=== PATIENT | female | born 1960 | race Caucasian/White ===

== ENCOUNTER → 2023-04-02 13:35 | Outpatient (BNVA) | payer OTHER, SELFPAY | PROVIDERS: Family Provider Family Medicine; PCP Family Medicine; Visit Provider Dermatology | DX: L82.1 Other seborrheic keratosis (principal); L81.5 Leukoderma, not elsewhere classified; L81.4 Other melanin hyperpigmentation; L57.8 Other skin changes due to chronic exposure to nonionizing radiation; D18.01 Hemangioma of skin and subcutaneous tissue; Z08 Encounter for follow-up examination after completed treatment for malignant neoplasm; Z85.828 Personal history of other malignant neoplasm of skin | CPT/HCPCS: 99213 ==

== ENCOUNTER → 2024-04-20 12:54 | Outpatient (BNVA) | payer OTHER, SELFPAY | PROVIDERS: Family Provider Family Medicine; PCP Family Medicine; Visit Provider Family Medicine | DX: Z78.9 Other specified health status (principal) | CPT/HCPCS: 87624 ==